=== PATIENT | female | born 1970 | race Two or more races ===

== ENCOUNTER 2020-10-22 21:53 | Emergency (ER) | payer SELFPAY ==
[~2020-10-22] VITALS: Ht 165.1 cm; Wt 77.3 kg
[2020-10-22 22:30] VITALS: BP 130/77
--- NOTE | 2020-10-22 23:13 | PHYS DOC ---
Past Medical History Past Medical History: Diabetes-Type II Past Surgical History: No Surgical History Smoking Status: Never Smoker Alcohol Use: None General Adult EDM: Chief Complaint: SORE THROAT HPI: HPI: Patient is a 50yo female presenting for sore throat. This has been going on for x10 days. She was seen 4 days ago at local urgent care for evaluation and was negative for strep and covid testing; however, patient discharged home on Azithromycin. She has been taking this without relief. Reports continued sore throat that is sharp and scratchy in nature. Has had intermittent fever of "100- 101" that has resolved with tylenol administration. Has had other URI symptoms such as rhinorrhea and nasal congestion. Daughter reports "she is just here for pain medication for her throat" Review of Systems: Review of Systems: Fourteen body systems of review of systems have been reviewed. See HPI for pertinent positives and negative responses, other yoder all other systems are negative, non-pertinent or non-contributory Heart Score: C/O Chest Pain: No Risk Factors: Risk Factors: DM, Current or recent (<one month) smoker, HTN, HLP, family history of CAD, obesity. Risk Scores: Score 0 - 3: 2.5% MACE over next 6 weeks - Discharge Home Score 4 - 6: 20.3% MACE over next 6 weeks - Admit for Clinical Observation Score 7 - 10: 72.7% MACE over next 6 weeks - Early Invasive Strategies Allergies: Allergies: Allergies Coded Allergies Type Severity Reaction Last Updated Verified No Known Drug Allergies 10/22/20 No Physical Exam: PE: Constitutional: Well developed, well nourished, no acute distress, non-toxic appearance. HENT: Normocephalic, atraumatic, bilateral external ears normal, oropharynx moist with erythematous posterior pharynx without masses/concern for abscess, no oral exudates, no phonation changes, tolerating secretions, nose normal. Eyes: PERRLA, EOMI, conjunctiva normal, no discharge. Neck: Normal range of motion, no tenderness, supple, no stridor. No findings concerning for ludwigs angina, no meningeal signs Cardiovascular: Heart rate tachycardic, sinus rhythm, no murmurs rubs or gallops Lungs & Thorax: Bilateral breath sounds clear to auscultation Abdomen: Bowel sounds normal, soft, no tenderness, no masses, no pulsatile masses. Nonsurgical abdomen, no peritoneal signs Skin: Warm, dry, no erythema, no rash. Back: No tenderness, no CVA tenderness. Extremities: No tenderness, no cyanosis, no clubbing, ROM intact, no edema. Neurologic: Alert and oriented X 3, grossly normal motor & sensory function, no focal deficits noted. Psychologic: Affect normal, judgement normal, mood normal. Current Patient Data: Vital Signs: Vital Signs Date Time Temp Pulse Resp B/P (MAP) Pulse Ox O2 Delivery O2 Flow Rate FiO2 10/22/20 22:30 98.0 105 20 130/77 (94) 95 Room Air 98.0 EKG: EKG: [] Radiology/Procedures: Radiology/Procedures: [] Course & Med Decision Making: Course & Med Decision Making Slightly tachycardic which is normal per patient otherwise hemodynamically stable. HPI and PE non-concerning for emergent/surgical issues I reviewed likely diagnoses that are most likely viral and self-limiting in nature. Reviewed limited indication for repeat strep testing as patient is already on antibiotic therapy. Patient deferred repeat COVID testing. I refused opioid medication administration for sore throat. I offered PO steroids and continued supportive care practices such as use of daily antihistamine and honey. Advised her to keep closer check of [facility]SB[facility] due to steroid administration and call PCP in morning for follow-up Strict return precautions discussed with good understanding by patient, all questions and concerns addressed prior to departure Arianna Disclaimer: Arianna Disclaimer: This electronic medical record was generated, in whole or in part, using a voice recognition dictation system. Departure Departure Impression: Primary Impression: Pharyngitis Disposition: HOME / SELF CARE / HOMELESS Condition: STABLE Referrals: NO PCP (PCP) Patient Instructions: Sore Throat Additional Instructions: You were seen for a sore throat. You are on appropriate antibiotics for this despite your recent negative test at a urgent care setting. Nonetheless, continue prescribed antibiotics to completion per bottle label instructions. You can take ibuprofen (Motrin/Advil) every 6 hours as needed for pain/fever. Push fluid intake. Please call your primary care physician first thing in the morning to review ER visit today and need for repeat evaluation within upcoming 48 hours. Return to the Urgent Care or Emergency Room if your child has worsening symptoms, difficulty swallowing, signs of dehydration (poor urine output, dry mouth), a fever > 102, or if you have any other concerns MICHELE ANNE DO October 22, 2020 23:13
[2020-10-22] MEDS: DEXAMETHASONE SOD PHOS 20 MG/5 ML VIAL. IV ONE (23:30)
== END 2020-10-22 23:52 | disposition home or self-care (01) ==
LOC: ER 21:53
DX: J02.9 Acute pharyngitis, unspecified (principal); E11.9 Type 2 diabetes mellitus without complications
CPT/HCPCS: 96374; 99283; J1100

== ENCOUNTER 2020-11-17 02:12 | Emergency (ER) | payer SELFPAY | END 2020-11-17 02:36 | disposition left against medical advice (07) | LOC: ER 02:12 | DX: R53.1 Weakness (principal); Z53.21 Procedure and treatment not carried out due to patient leaving prior to being seen by health care provider ==